=== PATIENT | male | born 1945 | race Caucasian/White ===

== ENCOUNTER 2017-02-13 00:28 | Day surgery (SDC) | payer MEDICARE, OTHER ==
[~2017-02-13] VITALS: Ht 182.9 cm; Wt 100.2 kg
[2017-02-13] MEDS ORDERED: 0.9% Sodium Chloride 1,000 ML IV SCH (06:00)
[2017-02-13] MEDS ORDERED: fentaNYL-PF 50 mCg/mL 2 mL Inj IVPUSH PRN (06:00)
[2017-02-13] MEDS ORDERED: Sodium Chloride LOK Flush 10 mL Syringe IV PRN (06:00)
[2017-02-13] MEDS ORDERED: DILT120T3 PO (10:14)
[2017-02-13] MEDS ORDERED: CALC-72 PO (10:14)
[2017-02-13] MEDS ORDERED: ASCO1TAB12 PO (10:14)
[2017-02-13] MEDS ORDERED: CHOL3000 PO (10:14)
[2017-02-13] MEDS ORDERED: PSYL0.4C2 PO (10:14)
[2017-02-13] MEDS ORDERED: ALFU10TA11 PO (10:14)
[2017-02-13] MEDS ORDERED: VITA-244 PO (10:14)
[2017-02-13] MEDS ORDERED: SAW160CA2 PO (10:14)
[2017-02-13] MEDS ORDERED: FLAX1CAP4 PO (10:14)
[2017-02-13] MEDS ORDERED: TIMO5DRO26 OP (10:14)
[2017-02-13 10:17] VITALS: BP 159/88; PULSE 55; RESP 14; O2SAT 98
[2017-02-13] MEDS ORDERED: fentaNYL-PF 50 mCg/mL 2 mL Inj ONE (10:31)
[2017-02-13 10:59] VITALS: BP 141/76; PULSE 56; RESP 14; O2SAT 95
[2017-02-13 11:09] VITALS: BP 137/73; PULSE 57; RESP 14; O2SAT 95
[2017-02-13 11:19] VITALS: BP 139/75; PULSE 55; RESP 14; O2SAT 96
[2017-02-13 11:29] VITALS: BP 152/80; PULSE 56; RESP 14; O2SAT 96
--- NOTE | 2017-02-13 13:01 | ENDO ---
[address] [address] ENDOSCOPY PROCEDURE PATIENT: PIERRE ENGEL : 1945 MR#: [id number] ADMIT: 02/13/2017 JOB ID: [id number] PROCEDURE: Colonoscopy. INDICATION: Screening. Patient's ASA classification is II. Mallampati score is II. MEDICATIONS: Versed 3 mg, fentanyl 75 mcg. INSTRUMENT USED: PCF-H180AL. Prep quality was poor. PROCEDURE DETAILS: After informed consent was obtained, the patient was brought into the GI suite, where he was placed on oxygen via nasal cannula and monitored with continuous pulse oximeter, telemetry, and blood pressure monitoring. A time-out was performed and then she was placed in a left lateral decubitus position and medications were administered for sedation. Digital rectal exam was performed which was unremarkable. The colonoscope was then inserted into the rectum and advanced under direct visualization to approximately 40 cm. Beyond this point, I was unable to advance the scope as there was solid stool obstructing the lumen. I attempted with copious amounts of irrigation to dislodge the stool. However, this was unsuccessful. At this point, the colonoscope was withdrawn back into the rectum as the mucosa and lumen were examined. In the rectum, retroflexion was performed. Following retroflexion, remaining air in the rectum was suctioned, and procedure was completed. FINDINGS: 1. Poor prep. 2. Internal hemorrhoids. RECOMMENDATIONS: Repeat colonoscopy with a two-day prep. COMPLICATIONS: None. ESTIMATED BLOOD LOSS: Zero.
[2017-03-26] MEDS ORDERED: POTA2TAB16 PO (07:45)
[2017-03-26] MEDS ORDERED: FUR20 PO (07:45)
[2017-03-26] MEDS ORDERED: ASPI-973 PO (07:45)
== END 2017-02-13 23:59 | disposition home or self-care (01) ==
LOC: END 00:28
PROVIDERS: ATTEND Internal Medicine Gastroenterology
DX: Z12.11 Encounter for screening for malignant neoplasm of colon (principal); K64.8 Other hemorrhoids; E78.5 Hyperlipidemia, unspecified; I10 Essential (primary) hypertension; G47.33 Obstructive sleep apnea (adult) (pediatric); J45.40 Moderate persistent asthma, uncomplicated; N40.1 Benign prostatic hyperplasia with lower urinary tract symptoms; E29.1 Testicular hypofunction; M10.9 Gout, unspecified; E66.9 Obesity, unspecified
CPT/HCPCS: G0121; G0500; J2250; J3010; J7030

== ENCOUNTER 2017-03-27 07:25 | Day surgery (SDC) | payer MEDICARE, OTHER ==
[~2017-03-27] VITALS: Ht 182.9 cm; Wt 223.0 kg
[~2017-03-27 07:25] MED LIST: 0.9% Sodium Chloride 1,000 ML IV SCH; ALFU10TA11 PO; ASCO1TAB12 PO; ASPI-973 PO; DILT120T3 PO; FLAX1CAP4 PO; FUR20 PO; POTA2TAB16 PO; PSYL0.4C2 PO; SAW160CA2 PO; Sodium Chloride LOK Flush 10 mL Syringe IV PRN; TIMO5DRO26 OP; fentaNYL-PF 50 mCg/mL 2 mL Inj IVPUSH PRN
[2017-03-27 07:47] VITALS: BP 180/99; PULSE 60; RESP 17; O2SAT 99
[2017-03-27] MEDS ORDERED: KETO120S3 TP (08:16)
[2017-03-27] MEDS ORDERED: TEST100V4 IM (08:16)
[2017-03-27] MEDS ORDERED: ACYC30OI TOP (08:16)
[2017-03-27] MEDS ORDERED: CHOL3000 PO (08:16)
[2017-03-27] MEDS ORDERED: ASCO1TAB12 PO (08:16)
[2017-03-27] MEDS ORDERED: [UNRECOGNIZED DRUG - OTHER] PO (08:16)
[2017-03-27] MEDS ORDERED: FLUO15CR TOPICAL (08:16)
[2017-03-27] MEDS ORDERED: CALC600T12 PO (08:16)
[2017-03-27 08:55] VITALS: BP 136/79; PULSE 63; RESP 14; O2SAT 97
[2017-03-27 09:02] VITALS: BP 154/90; PULSE 56; RESP 14; O2SAT 98
[2017-03-27 09:07] VITALS: BP 147/90; PULSE 67; RESP 14; O2SAT 96
--- NOTE | 2017-03-27 09:17 | ENDO ---
[address] [address] ENDOSCOPY PROCEDURE PATIENT: PIERRE ENGEL : 1945 MR#: [id number] ADMIT: 03/27/2017 JOB ID: [id number] DATE: 03/27/2017 PROCEDURE: Colonoscopy. INDICATION: Colon cancer screening. The patient's ASA classification is 2. Mallampati score is 2. MEDICATIONS: 1. Versed 5 mg. 2. Fentanyl 75 mcg. INSTRUMENT USED: PCF H 180 AL. PREPARATION QUALITY: Was fair. PROCEDURE DETAILS: After informed consent was obtained, the patient was brought into the GI suite, where he was placed on oxygen via nasal cannula and monitored with continuous pulse oximeter, telemetry and blood pressure monitoring. A time-out was performed. Then, he was placed in the left lateral decubitus position and medications were administered for sedation. A digital rectal examination was performed, which revealed prominent external anal papillae. The colonoscope was then inserted into the rectum and advanced under direct visualization to the cecum, which was identified by the presence of the ileocecal valve and appendiceal orifice. Once the cecum was reached, the colonoscope was withdrawn back into the rectum as the mucosa and lumen were examined. In the rectum, retroflexion was performed. Following retroflexion, remaining air in the rectum was suctioned, and the procedure was completed. FINDINGS: 1. In the transverse colon, there was an approximately 4 mm sessile polyp that was removed with a cold snare. 2. In the rectum there was a diminutive polyp that was removed with cold biopsy forceps. 3. Multiple numerous diverticula were seen throughout the sigmoid colon and descending colon. IMPRESSION: 1. Transverse colon polyp. 2. Rectal polyp. 3. Severe left-sided diverticulosis. RECOMMENDATIONS: 1. Fiber rich diet. 2. Repeat colonoscopy pending polyp pathology results. 3. Followup in GI clinic as needed. COMPLICATIONS: None. ESTIMATED BLOOD LOSS: Less than 5 mL.
--- NOTE | 2017-03-30 15:08 | PATH ---
SURGICAL PATHOLOGY Attending Physician:Ryan Black CASE STATUS: Signed Out PATIENT NAME: PIERRE ENGEL PID: [id number] : 1945 DATE COLLECTED:03/27/2017 18:07 SPECIMEN: 1: Colon, Polyp 2: Rectum, Biopsy CLINICAL HISTORY: 1). TRANSVERSE POLYP 2). RECTUM POLYP FINAL DIAGNOSIS: 1.TRANSVERSE COLON POLYP: TUBULAR ADENOMA. 2.RECTUM POLYP: POLYPOID-SHAPED FRAGMENT OF COLON MUCOSA CONSISTENT WITH POLYPOID REDUNDANCY. Negative for evidence of neoplasm or significant hyperplasia. ICD10 D12.3 GROSS DESCRIPTION: The specimens are received in formalin, labeled with the patient's name, and sublabeled as the following: (1) transverse polyp; (2) rectum polyp. (1) The specimen consists of an [place]ia-orange rubbery semi-translucent sessile polyp (0.5 x 0.3 x 0.2 cm). Ink code: black-resection margin. Section code: (A) polyp, bisected. Specimen entirely submitted. (2) The specimen consists of a fragment of valdivia-yellow glistening semitranslucent rubbery tissue (0.4 x 0.2 x 0.1 cm). Section code: (2A) intact tissue. Specimen entirely submitted. 03/28/17 MICRO DESCRIPTION: See diagnosis. ICD-9 CODES: CPT CODES: 1: 22732 2: 71397 Electronically Signed Out Fernando Johnson MD [facility] [address], [place] [address] Technical component performed at [facility], [address] [place] [address] Ave[address], [place], [address]
== END 2017-03-27 23:59 | disposition home or self-care (01) ==
LOC: END 07:25
PROVIDERS: ATTEND Internal Medicine Gastroenterology
DX: Z12.11 Encounter for screening for malignant neoplasm of colon (principal); D12.3 Benign neoplasm of transverse colon; K62.1 Rectal polyp; I10 Essential (primary) hypertension; E78.00 Pure hypercholesterolemia, unspecified
CPT/HCPCS: 45380; 45385; 88305; 99153; G0500; J2250; J3010; J7030